=== PATIENT | female | born 1990 | race Caucasian/White ===

== ENCOUNTER 2018-06-04 21:49 | Emergency (ER) | payer SELFPAY ==
[2018-06-04 21:57] VITALS: BMI 29.6
[2018-06-04] MEDS ORDERED: ACETAMINOPHEN 325 MG TABLET (FP) PO ONE (21:58)
--- NOTE | 2018-06-04 21:58 | PDOC ---
Rapid Medical Evaluation Medical Evaluation: Allergies Allergy/AdvReac Type Severity Reaction Status Date / Time No Known Allergies Allergy Verified 12/23/14 11:58 I have performed a brief in-person evaluation of this patient. The patient presents with a chief complaint of: c/o fever today; also cough, post-tussive emesis, body aches x 2 days; also with CP only with coughing; states daughter also with cold (daughter got sick first) Pertinent physical exam findings: Lungs clear I have ordered the following: Flu The patient will proceed to the ED for further evaluation. 06/04/18 21:54
[2018-06-04] MEDS ORDERED: ONDANSETRON *ODT* 4 MG TABLET SL ONE (22:22)
--- NOTE | 2018-06-04 22:25 | PDOC ---
History of Present Illness - General Chief Complaint: Cold Symptoms Stated Complaint: COUGH CHILLS FEVER Time Seen by Provider: 06/04/18 22:15 History Source: Patient - History of Present Illness Initial Comments: 06/05/18 00:13 27 year old female nausea, nasal congestion cough and fever x 2 days. daughter sick with similar symptoms now getting better. vomited 2 times in the ER with epigastric pain. denies urinary symptoms, chest pain, 06/05/18 00:57 Past History - Past Medical History Allergies/Adverse Reactions: Allergies Allergy/AdvReac Type Severity Reaction Status Date / Time No Known Allergies Allergy Verified 06/04/18 21:55 Home Medications: Ambulatory Orders Acetaminophen/Caffeine/Butalb [Fioricet -] 1 tab PO Q6H PRN #30 tablet 12/23/14 Esomeprazole Mag Trihydrate [Nexium] 20 mg PO DAILY #30 capsule 12/23/14 Norgestimate-Ethinyl Estradiol [Ortho Tri-Cyclen 28 Tablet] 1 each PO DAILY predniSONE [Deltasone -] 60 mg PO ONCE 12/23/14 Meclizine HCl [Bonine] 25 mg PO BID #6 tab.chew 03/27/15 Sulfamethoxazole/Trimethoprim [Bactrim Ds -] 1 tab PO BID #14 tablet 03/27/15 Anemia: No Asthma: No Cancer: No Cardiac Disorders: No COPD: No Diabetes: No HTN: No Seizures: No Thyroid Disease: No - Reproductive History (#): 1 Para: 1 Cervical CA: No Dysfunctional Uterine Bleeding: No Ectopic : No Endometrial CA: No Polycystic Ovaries: No Therapeutic (s) & number: No Tubal Ligation: No Spontaneous : 0 - Suicide/Smoking/Psychosocial Hx Smoking Status: No Smoking History: Never smoked Have you smoked in the past 12 months: No Number of Cigarettes Smoked Daily: 0 Hx Alcohol Use: No Drug/Substance Use Hx: No Substance Use Type: None Hx Substance Use Treatment: No Respiratory Specific PMHX - Complaint Specific PMHX Angina: No Review of Systems - Review of Systems Able to Perform ROS?: Yes Is the patient limited Latvian proficient: No Constitutional: Yes: Fever HEENTM: Yes: Nose Congestion. No: Symptoms Reported, See HPI, Eye Pain, Blurred Vision, Tearing, Recent change in vision, Double Vision, Cataracts, Ear Pain, Ocular Prothesis, Ear Discharge, Nose Pain, Tinnitus, Nose Bleeding, Hearing Loss, Throat Pain, Throat Swelling, Mouth Pain, Dental Problems, Difficulty Swallowing, Mouth Swelling, Other Respiratory: Yes: Cough. No: Symptoms reported, See HPI, Orthopnea, Shortness of Breath, SOB with Exertion, SOB at Rest, Stridor, Wheezing, Productive cough, Hemoptysis, Other Cardiac (ROS): No: Symptoms Reported, See HPI, Chest Pain, Edema, Irregular Heart Rate, Lightheadedness, Palpitations, Syncope, Chest Tightness, Other ABD/GI: Yes: Nausea, Vomiting, Other (epigastric pain) Musculoskeletal: No: Symptoms Reported, See HPI, Back Pain, Gout, Joint Pain, Joint Swelling, Muscle Pain, Muscle Weakness, Neck Pain, Joint Stiffness, Other Integumentary: No: Symptoms Reported, See HPI, Bruising, Change in Color, Change in Hair/Nails, Dryness, Erythema, Flushing, Lesions, Lumps, Pallor, Pruritus, Rash, Sweating, Other *Physical Exam - Vital Signs Last Vital Signs Temp Pulse Resp BP Pulse Ox 99.6 F 128 H 20 123/82 98 06/04/18 21:55 06/04/18 21:55 06/04/18 21:55 06/04/18 21:55 06/04/18 21:55 - Physical Exam General Appearance: Yes: Appropriately Dressed HEENT: positive: Tonsillar Erythema Respiratory/Chest: positive: Lungs Clear, Normal Breath Sounds Gastrointestinal/Abdominal: positive: Normal Bowel Sounds, Soft Extremity: positive: Normal Capillary Refill, Normal Inspection, Normal Range of Motion Integumentary: positive: Normal Color, Dry, Warm Neurologic: positive: Fully Oriented, Alert, Normal Mood/Affect Moderate Sedation - Procedure Monitoring Vital Signs: Procedure Monitoring Vital Signs Temperature 99.6 F 06/04/18 21:55 Pulse Rate 128 H 06/04/18 21:55 Respiratory Rate 20 06/04/18 21:55 Blood Pressure 123/82 06/04/18 21:55 O2 Sat by Pulse Oximetry (%) 98 06/04/18 21:55 ED Treatment Course - Medications Given in the ED: ED Medications Discontinued Medications Generic Name Dose Route Start Last Admin Trade Name Freq PRN Reason Stop Dose Admin Acetaminophen 650 mg 06/04/18 21:58 06/04/18 22:00 Tylenol - PO 06/04/18 21:59 650 mg ONCE ONE Administration Medical Decision Making - Medical Decision Making A: viral syndrome P: IVF antiemetics influenza rapid strep 06/04/18 22:36 reports feeling dizzy. will give IV hydration. vomited 1 x in the ED 06/05/18 00:55 now tolerating PO water. reports that she is feeling better; viral syndrome. supportive care discussed with patient *DC/Admit/Observation/Transfer Diagnosis at time of Disposition: Flu-like symptoms, Viral syndrome - Discharge Dispostion Disposition: HOME Condition at time of disposition: Improved - Referrals - Patient Instructions Printed Discharge Instructions: DI for Common Cold Additional Instructions: drink plenty of fluids start a BRAT ( bananas, rice apples toast) follow up with your doctor Please take Tylenol every 4-6 hours as you need for fever return to the ER immediately if symptoms worsen - Post Discharge Activity Forms/Work/School Notes: Back to Work
--- NOTE | 2018-06-04 22:25 | PDOC ---
*Physical Exam - Vital Signs Last Vital Signs Temp Pulse Resp BP Pulse Ox 99.6 F 128 H 20 123/82 98 06/04/18 21:55 06/04/18 21:55 06/04/18 21:55 06/04/18 21:55 06/04/18 21:55 ED Treatment Course - Medications Given in the ED: ED Medications Discontinued Medications Generic Name Dose Route Start Last Admin Trade Name Fede PRN Reason Stop Dose Admin Acetaminophen 650 mg 06/04/18 21:58 06/04/18 22:00 Tylenol - PO 06/04/18 21:59 650 mg ONCE ONE Administration Medical Decision Making - Medical Decision Making 06/04/18 22:25 Patient seen by the advanced practice provider under my direct supervision. Ancillary testing reviewed as necessary. I agree with plan as outlined by the advanced practice provider. *DC/Admit/Observation/Transfer Diagnosis at time of Disposition: Flu-like symptoms, Viral syndrome - Discharge Dispostion Disposition: HOME Condition at time of disposition: Improved - Referrals - Patient Instructions Printed Discharge Instructions: DI for Common Cold Additional Instructions: drink plenty of fluids start a BRAT ( bananas, rice apples toast) follow up with your doctor Please take Tylenol every 4-6 hours as you need for fever return to the ER immediately if symptoms worsen - Post Discharge Activity Forms/Work/School Notes: Back to Work
[2018-06-04] MEDS ORDERED: ONDANSETRON *ODT* 4 MG TABLET ONE (22:29)
[2018-06-04] MEDS ORDERED: SODIUM CHLORIDE 1,000 ML IV STA (22:37)
[2018-06-04] MEDS ORDERED: METOCLOPRAMIDE HCL INJECTION 10 MG/2 ML VIAL ONE (23:01)
[2018-06-04] MEDS ORDERED: METOCLOPRAMIDE HCL INJECTION 10 MG/2 ML VIAL IVPB ONE (23:01)
[2018-06-04 23:12] LABS: URINE APPEARANCE SLCLOUDY; URINE BILIRUBIN NEGATIVE (<2.0 mg/dL); URINE COLOR YELLOW; URINE GLUCOSE (UA) NEGATIVE (NEGATIVE); URINE KETONE 1+ (NEGATIVE); URINE LEUK ESTERASE TRACE (NEGATIVE); URINE NITRITE NEGATIVE (NEGATIVE); URINE PROTEIN 1+ (NEGATIVE); URINE UROBILINOGEN NEGATIVE mg/dL (0.2-1.0)
[2018-06-04 23:13] LABS: HCG,QUALITATIVE URINE Negative
[2018-06-04 23:19] LABS: EPI CELLS RARE /HPF (FEW); URINE BACTERIA RARE /hpf (NONE SEEN); URINE MUCUS RARE
[2018-06-05] MEDS ORDERED: ONDANSETRON 4 MG/2 ML VIAL IVPUSH ONE (00:04)
[2018-06-05] MEDS ORDERED: FAMOTIDINE 20 MG/50 ML IVPB 20 MG/50 ML MG IVPB ONE ×2 (00:04→00:17)
[2018-06-05] MEDS ORDERED: ONDANSETRON 4 MG/2 ML VIAL ONE (00:17)
[2018-06-05 01:09] VITALS: BP 123/72; PULSE 78; TEMP 97.9
== END 2018-06-05 01:09 | disposition home or self-care (01) ==
LOC: JER 21:49
PROC: 3E0337Z Introduction of Electrolytic and Water Balance Substance into Peripheral Vein, Percutaneous Approach (ICD-10-PCS; principal; 2018-06-04)
PROC: 3E033GC Introduction of Other Therapeutic Substance into Peripheral Vein, Percutaneous Approach (ICD-10-PCS; 2018-06-04)
PROC: 3E033GC Introduction of Other Therapeutic Substance into Peripheral Vein, Percutaneous Approach (ICD-10-PCS; 2018-06-04)
PROC: 3E033GC Introduction of Other Therapeutic Substance into Peripheral Vein, Percutaneous Approach (ICD-10-PCS; 2018-06-04)
DX: J11.1 Influenza due to unidentified influenza virus with other respiratory manifestations (principal)
CPT/HCPCS: 81003; 81015; 84703; 87070; 87077; 87804; 87880; 99282-25; J7030; Q0162